=== PATIENT | male | born 1975 | race Caucasian/White ===

== ENCOUNTER 2023-09-05 15:39 | Emergency (ER) | payer BC, SELFPAY ==
[2023-09-05] VITALS (10 sets, daily range): BP systolic 137–169; BP diastolic 70–108; PULSE 64–103; RESP 16–25; TEMP 36.8; O2SAT 95–100; BMI 28.0
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
[2023-09-05] MEDS: TET,DIPH,PERTUSS(ACELL),VAC/PF 0.5 ML SYRINGE IM (15:59)
[2023-09-05] MEDS: KETOROLAC 30 MG/ML VIAL 15 MG IV (16:22)
[2023-09-05] MEDS: MORPHINE 4 MG/ML INJ IV (17:15)
[2023-09-05] MEDS: MUPIROCIN 22 GM OINT 1 APPLIC TOP (17:17)
[2023-09-05] MEDS: ONDANSETRON 4 MG ODT PO (17:17)
[2023-09-05] MEDS: OXYCODONE/APAP 5/325 PREPACK 1 BOTTLE MISC (17:18)
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
== END 2023-09-05 18:54 | disposition home or self-care (01) ==
PROVIDERS: Emergency Provider Emergency Medicine
DX: T21.22XA Burn of second degree of abdominal wall, initial encounter (principal); T24.212A Burn of second degree of left thigh, initial encounter; T24.211A Burn of second degree of right thigh, initial encounter; X10.0XXA Contact with hot drinks, initial encounter; Z23 Encounter for immunization
CPT/HCPCS: 90471; 96374; 96375; 99284; 90715; J1885; J2270